=== PATIENT | female | born 1945 | race Caucasian/White ===

== ENCOUNTER → 2016-11-14 | Outpatient (CLI) | payer MEDICARE, BC ==
[~2016-11-14] MED LIST: ACET1TAB64 PO; ACYC-57 PO; ALBU18HF INH; AMLO5TAB2 PO; ASPI-496 PO; ATOR80TA75 PO; CALC-192 PO; CHOL10003 PO; FLAX1CAP PO; GINK60TA PO; LEVO100T5 PO; LOSA100T6 PO; MULT-516 PO; PANT40TA5 PO; PSYL1CAP5 PO
[2016-11-14 14:28] LABS: BLOOD UREA NITROGEN 16 mg/dL (7-18)
[2016-11-14 14:31] LABS: ASPARTATE AMINO TRANSFERASE 41 U/L (15-37)
== END | disposition home or self-care (01) ==
LOC: STAR 13:13
PROVIDERS: ATTEND Orthopaedic Surgery
DX: Z01.818 Encounter for other preprocedural examination (principal); M19.012 Primary osteoarthritis, left shoulder
CPT/HCPCS: 36415; 80053; 93005

== ENCOUNTER 2016-12-11 07:22 | Inpatient (IN) | payer MEDICARE, BC ==
[~2016-12-11] VITALS: Ht 172.7 cm; Wt 75.1 kg
[~2016-12-11 07:22] MED LIST changes: +CLINDAMYCIN 150 MG/ML, 6ML ONE
[2016-12-11] MEDS: VANCOMYCIN PER PHARMACY MC STA (07:32)
[2016-12-11] MEDS ORDERED: VANCOMYCIN 1,300 MG in SODIUM CHLORIDE 0.9% 250 ML IV ONE (08:00)
[2016-12-11] MEDS ORDERED: LACTATED RINGERS 1,000 ML IV SCH (08:07)
[2016-12-11 08:30] VITALS: BP 117/73
[2016-12-11] MEDS ORDERED: MIDAZOLAM 1 MG/ML, 2ML ONE (09:13)
[2016-12-11] MEDS ORDERED: FENTANYL PF 250 MCG/5ML ONE (09:13)
[2016-12-11] MEDS ORDERED: BISACODYL 10 MG SUPP PR PRN (09:30)
[2016-12-11] MEDS ORDERED: morphine SULFATE 10 MG/ML, 1ML IV PRN (09:30)
[2016-12-11] MEDS ORDERED: APAP/CODEINE 300/30MG TABLET PO PRN (09:30)
[2016-12-11] MEDS ORDERED: ACYCLOVIR 400 MG TABLET PO PRN (09:30)
[2016-12-11] MEDS ORDERED: ONDANSETRON 2MG/ML, 2ML IV PRN (09:30)
[2016-12-11] MEDS: KETOROLAC 30 MG/1 ML IM SCH ×2 (09:30→18:02)
[2016-12-11] MEDS ORDERED: SENNA/DOCUSATE TABLET PO PRN (09:30)
[2016-12-11] MEDS ORDERED: PROMETHAZINE 25 MG/ML, 1ML IM PRN (09:30)
[2016-12-11] MEDS ORDERED: MAGNESIUM HYDROXIDE 8%, 30ML UDC PO PRN (09:30)
[2016-12-11] MEDS ORDERED: ALUMINUM/MAG/SIMETHICONE 30 ML UDC PO PRN (09:30)
[2016-12-11] MEDS ORDERED: ACETAMINOPHEN 325 MG TABLET PO PRN ×2 (09:30→10:30)
[2016-12-11] MEDS ORDERED: ONDANSETRON 2MG/ML, 2ML ONE (09:45)
[2016-12-11] MEDS ORDERED: ROCURONIUM 10 MG/ML ONE (09:45)
[2016-12-11] MEDS ORDERED: GLYCOPYRROLATE 0.2MG/1ML ONE (09:45)
[2016-12-11] MEDS ORDERED: PROPOFOL 10 MG/ML, 20ML ONE (09:45)
[2016-12-11] MEDS ORDERED: NEOSTIGMINE 1 MG/ML, 10ML ONE (09:45)
[2016-12-11] MEDS ORDERED: DEXAMETHASONE 4 MG/ML, 1ML ONE (09:45)
[2016-12-11] MEDS ORDERED: METOPROLOL 1 MG/ML, 5ML IV PRN (10:30)
[2016-12-11] MEDS ORDERED: EPHEDRINE 50 MG/ML, 1ML IVPush PRN (10:30)
[2016-12-11] MEDS ORDERED: HYDROmorphone 1 MG/ML, 1ML IV PRN (10:30)
[2016-12-11] MEDS ORDERED: hydrALAzine 20 MG/ML, 1ML IV PRN (10:30)
[2016-12-11] MEDS ORDERED: LABETALOL 5MG/ML, 20ML IV PRN (10:30)
[2016-12-11] MEDS ORDERED: ONDANSETRON 2MG/ML, 2ML IVPush PRN (10:30)
[2016-12-11] MEDS ORDERED: FENTANYL PF 100 MCG/2ML IV PRN (10:30)
[2016-12-11] MEDS ORDERED: OXYcodone 5 MG/5 ML ORAL.SOL UDC PO PRN (10:30)
[2016-12-11] MEDS ORDERED: ALBUTEROL SULFATE 2.5 MG/3 ML NPPB PRN (10:30)
[2016-12-11] MEDS ORDERED: ACETAMINOPHEN 325 MG TABLET ONE (11:42)
[2016-12-11] MEDS ORDERED: OXYcodone 5 MG/5 ML ORAL.SOL UDC ONE (11:42)
[2016-12-11] MEDS ORDERED: ACETAMINOPHEN 650 MG/20.3 ML UDC ONE (11:43)
[2016-12-11] MEDS: OXYcodone/APAP 5/325MG TABLET PO PRN ×2 (15:50→20:58)
[2016-12-11] MEDS: D5%-0.45% NACL 1,000 ML IV SCH (15:51)
[2016-12-11] MEDS: CEFAZOLIN PMX 1GM/50ML 50 ML IVPB SCH ×2 (15:51→23:55)
[2016-12-11 19:53] VITALS: BP 107/66
[2016-12-11] MEDS: DOCUSATE 100 MG CAPSULE PO SCH (20:58)
[2016-12-11] MEDS ORDERED: ATORVASTATIN 80 MG TABLET PO SCH (21:00)
[2016-12-12 00:01] VITALS: BP 116/69
[2016-12-12] MEDS: OXYcodone/APAP 5/325MG TABLET PO PRN ×3 (01:01→10:19)
[2016-12-12] MEDS: KETOROLAC 30 MG/1 ML IM SCH (01:25)
[2016-12-12] MEDS: D5%-0.45% NACL 1,000 ML IV SCH (02:25)
[2016-12-12 02:55] VITALS: BP 112/65
[2016-12-12 07:47] VITALS: BP 107/66
[2016-12-12] MEDS: DOCUSATE 100 MG CAPSULE PO SCH (08:07)
[2016-12-12] MEDS: CEFAZOLIN PMX 1GM/50ML 50 ML IVPB SCH (08:07)
[2016-12-12] MEDS ORDERED: MULTIVITAMINS/MINERALS TABLET PO SCH (09:00)
[2016-12-12] MEDS ORDERED: MULTIVITAMIN 1 TABLET PO SCH (09:00)
[2016-12-12] MEDS ORDERED: ASPIRIN 81 MG TABLET EC PO SCH (09:00)
[2016-12-12] MEDS ORDERED: LEVOTHYROXINE 100 MCG TABLET PO SCH (09:00)
[2016-12-12] MEDS ORDERED: CHOLECALCIFEROL 1,000 UNIT TABLET PO SCH (09:00)
[2016-12-12] MEDS ORDERED: AMLODIPINE 5 MG TABLET PO SCH (09:00)
[2016-12-12] MEDS ORDERED: PANTOPROZOLE 40MG TABLET PO SCH (09:00)
[2016-12-12 10:47] VITALS: BP 111/70
== END 2016-12-12 11:00 | disposition home or self-care (01) | DRG 483 ==
LOC: ORIP 07:22 → 4NOR 13:37
PROVIDERS: ADMIT Orthopaedic Surgery; ATTEND Orthopaedic Surgery
PROC: 0LS40ZZ Reposition Left Upper Arm Tendon, Open Approach (ICD-10-PCS; 2016-12-11)
PROC: 0RRK00Z Replacement of Left Shoulder Joint with Reverse Ball and Socket Synthetic Substitute, Open Approach (ICD-10-PCS; principal; 2016-12-11 10:00)
DX: M19.012 Primary osteoarthritis, left shoulder (principal); I10 Essential (primary) hypertension; M75.22 Bicipital tendinitis, left shoulder; J45.909 Unspecified asthma, uncomplicated; E78.00 Pure hypercholesterolemia, unspecified; E03.9 Hypothyroidism, unspecified; Z88.5 Allergy status to narcotic agent; Z79.899 Other long term (current) drug therapy
CPT/HCPCS: C1713; C1776; J0690; J1100; J1885; J2250; J2405; J2704; J2710; J3010; J3370; J3490; J7050; J7120